=== PATIENT | male | born 1995 | race Two or more races ===

== ENCOUNTER 2018-07-03 13:59 | Emergency (ER) | payer MEDICAID ==
[~2018-07-03] VITALS: Ht 175.3 cm; Wt 81.6 kg
[2018-07-03 14:20] VITALS: BP 108/82
[2018-07-03] MEDS ORDERED: SODIUM CHLORIDE 0.9% 1,000 ML IV ONE (14:54)
[2018-07-03] MEDS ORDERED: KETOROLAC TROMETH 30 MG/ML 1ML VIAL IV ONE (15:00)
[2018-07-03 15:23] LABS: Basophils # (auto) 0 uL; Basophils % (auto) 0.3 % (0.0-2.0); Eosinophils # (auto) 0 uL; Eosinophils % (auto) 0.1 % (0.0-7.0); Hematocrit 45.2 % (41.0-53.0); Hemoglobin 15.6 g/dL (13.5-17.5); Lymphocytes # (auto) 0.5 uL; Lymphocytes % (auto) 3.5 % (10.0-50.0); Mean Corpuscular Hemoglobin 29.7 pg (28.0-32.0); Mean Corpuscular Hgb Conc. 34.4 g/dL (32.0-36.0); Mean Corpuscular Volume 86.3 fL (80.0-100.0); Monocytes % (auto) 6.6 % (0.0-12.0); Neutrophils # (auto) 13.9 uL; Neutrophils % (auto) 89.5 % (37.0-80.0); Platelet Count (auto) 219 10^3/uL (140-450); Red Blood Cells 5.24 10^6/uL (4.5-5.90); Red Cell Distribution Width 12.7 % (11.8-14.3); White Blood Cell 15.5 10^3/uL (4.4-10.8)
[2018-07-03 15:40] LABS: Albumin 3.9 g/dL (3.4-5.0); Calcium 8.7 mg/dL (8.5-10.1); Magnesium 1.7 mg/dL (1.6-2.6); Potassium 4.2 mmol/L (3.5-5.1)
[2018-07-03 15:43] LABS: BUN/Creatinine Ratio 12.2; Bilirubin, Total 1.3 mg/dL (0.2-1.0); Total Protein 7.7 g/dL (6.4-8.2)
== END 2018-07-03 19:20 | disposition home or self-care (01) ==
LOC: EDBD 13:59 → ER 13:59
DX: B34.9 Viral infection, unspecified (principal); R11.10 Vomiting, unspecified
CPT/HCPCS: 36415; 71045; 80053; 83735; 85025; 94761; 96374; 99284; J1885